=== PATIENT | male | born 2000 | race Caucasian/White ===

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

== ENCOUNTER 2022-09-14 22:31 | Observation (INO) | payer BC ==
[2022-09-14] MEDS ORDERED: SODIUM CHLORIDE 0.9% 1,000 ML IV STA (23:20)
[2022-09-14] MEDS ORDERED: ASPIRIN 81 MG PO STA (23:20)
[2022-09-14] MEDS: METOPROLOL TARTRATE 5 MG/5 ML VIAL IVP SCH ×2 (23:27→23:49)
[2022-09-14 23:30] LABS: Basophils % (A) 0 %; Eosinophils # (A) 0.2 k/uL (0-0.7); Eosinophils % (A) 3 %; HCT 45.7 % (39.0-53.0); HGB 15.7 gm/dL (13.0-17.5); Lymphocytes # (A) 3.4 k/uL (1.0-4.8); Lymphocytes % (A) 39 %; MCH 29.6 pg (25.0-35.0); MCHC 34.3 g/dL (31.0-37.0); MCV 86.2 fL (80.0-100.0); Mean Platelet Volume 7.9; Monocytes # (A) 0.5 k/uL (0-1.0); Monocytes % (A) 6 %; Neutrophils # (A) 4.5 k/uL (1.3-7.7); Neutrophils % (A) 51 %; Platelet Count 284 k/uL (150-450); RBC 5.31 m/uL (4.30-5.90); RDW 13.4 % (11.5-15.5); WBC 8.9 k/uL (3.8-10.6)
[2022-09-14 23:40] LABS: ALT 28 U/L (4-49); AST 26 U/L (17-59); African American GFR (CKD) >90 (>60 ml/min/1.73 sqM); Alkaline Phosphatase 97 U/L (38-126); Anion Gap 14 mmol/L; Blood Urea Nitrogen 17 mg/dL (9-20); Calcium 9.4 mg/dL (8.4-10.2); Carbon Dioxide 23 mmol/L (22-30); Chloride 103 mmol/L (98-107); Glucose 118 mg/dL (74-99); Magnesium 2.1 mg/dL (1.6-2.3); Non-African American GFR(CKD) >90 (>60 ml/min/1.73 sqM); Sodium 140 mmol/L (137-145); Total Bilirubin 0.3 mg/dL (0.2-1.3); Total Protein 7.5 g/dL (6.3-8.2)
--- NOTE | 2022-09-14 23:41 | XR ---
EXAMINATION TYPE: XR chest 2V DATE OF EXAM: 09/14/2022 11:36 PM COMPARISON: None TECHNIQUE: XR chest 2V Frontal and lateral views of the chest. CLINICAL INDICATION:Male, 22 years old with history of Chest Pain; FINDINGS: Lungs/Pleura: There is no evidence of pleural effusion, focal consolidation, or pneumothorax. Pulmonary vascularity: Unremarkable. Heart/mediastinum: Cardiomediastinal silhouette is unremarkable. Musculoskeletal: No acute osseous pathology. IMPRESSION: No acute cardiopulmonary disease/process.
[2022-09-14 23:50] LABS: INR 1.1 (<1.2); Partial Thromboplastin Time 27.4 sec (22.0-30.0); Prothrombin Time 11.6 sec (9.0-12.0)
[2022-09-15] MEDS ORDERED: HEPARIN SODIUM 1,000 UN/ML (10ML VL) IV ONE
[2022-09-15] MEDS ORDERED: HEPARIN SODIUM 1,000 UN/ML (10ML VL) IV PRN
[2022-09-15] MEDS: METOPROLOL TARTRATE 5 MG/5 ML VIAL IVP SCH ×4 (00:05→01:12)
[2022-09-15] MEDS ORDERED: METOPROLOL TARTRATE 50 MG TAB PO STA (00:51)
[2022-09-15] MEDS: HEPARIN SOD,PORK IN 0.45% NACL 25,000 UNIT in 0.45% NACL 1 250ML.BAG IV SCH (01:09)
[2022-09-15] MEDS ORDERED: DILTIAZEM 5 MG/ML 5 ML VIAL IVP STA (01:33)
[2022-09-15] MEDS ORDERED: DILTIAZEM 125 MG in SODIUM CHLORIDE 0.9% 100 ML IV SCH (01:45)
[2022-09-15] MEDS ORDERED: NALOXONE 0.4 MG/ML 1 ML VIAL IV PRN ×2 (01:47→01:48)
[2022-09-15] MEDS ORDERED: ONDANSETRON 4 MG/2 ML VIAL IVP PRN (01:48)
--- NOTE | 2022-09-15 03:34 | ED ---
General Adult HPI - General Chief complaint: Arrhythmia/Palpitations Stated complaint: Rapid Heart Rate, Chest Tightness, Heart History Time Seen by Provider: 09/14/22 23:20 Source: patient, RN notes reviewed, old records reviewed Mode of arrival: ambulatory Limitations: no limitations - History of Present Illness Initial comments: Patient is a 22-year-old male who presents emergency Department complaining of heart palpitations, lightheadedness, as well as some chest tightness. Patient has a history of A. fib. States this usually happens when he has A. fib. Seems to be somewhat noncompliant with metoprolol. States he has been out of his normal prescription for metoprolol. Also has not been on any blood thinners and is uncertain why. Seems like he may have poor follow-up. Is overall a poor historian. States he began experiencing symptoms earlier today. Denies any shortness of breath. Denies any abdominal pain, nausea, vomiting. States the chest tightness is mostly over the left side with no radiation. No other acute complaints at this time. Presents for further evaluation at this time. - Related Data Previous Rx's Medication Instructions Recorded Apixaban [Eliquis] 5 mg PO BID #60 tab 01/10/20 Metoprolol Tartrate [Lopressor] 50 mg PO BID #60 tab 01/10/20 Allergies Allergy/AdvReac Type Severity Reaction Status Date / Time No Known Allergies Allergy Verified 09/14/22 22:39 Review of Systems ROS Statement: Those systems with pertinent positive or pertinent negative responses have been documented in the HPI. Review of Systems: CONST: Denies fever EYES: Denies blurry vision ENT: Denies nasal congestion C/V: Endorses heart palpitations RESP: Denies shortness of breath GI: Denies abdominal pain : Denies dysuria SKIN: Denies rash. MSK: Denies joint pain. NEURO: Denies headache ROS Other: All systems not noted in ROS Statement are negative. Past Medical History Past Medical History: Chest Pain / Angina Additional Past Medical History / Comment(s): Pt reports seeing finish specialist in the past for a sinus arrhythmia History of Any Multi-Drug Resistant Organisms: None Reported Past Surgical History: No Surgical Hx Reported Past Anesthesia/Blood Transfusion Reactions: No Reported Reaction Past Psychological History: Depression Smoking Status: Former smoker Past Alcohol Use History: Rare Past Drug Use History: None Reported - Past Family History Mother Family Medical History: No Reported History Father Family Medical History: No Reported History General Exam - General Exam Comments Initial Comments: General: Appears in no acute distress. HEAD: Normal with no signs of head trauma. EYES: PERRLA, EOMI, conjunctiva normal, no discharge. ENT: Hearing grossly intact, normal oropharynx. RESPIRATORY: Clear breath sounds bilaterally. No wheezes, rales, or rhonchi. C/V: Irregular rate and rhythm. S1 and S2 auscultated. No peripheral edema. Peripheral pulses 2+ and intact throughout. ABD: Abd is soft, nontender, nondistended EXT: Normal range of motion, no obvious deformity SKIN: No rashes or lesions observed on exposed skin. NEURO: Alert and oriented 4. Limitations: no limitations Course Vital Signs 09/14/22 09/14/22 09/15/22 22:36 23:30 00:00 Temperature 97.8 F Pulse Rate 157 H 165 H 158 H Respiratory 18 16 18 Rate Blood Pressure 129/84 109/73 115/90 O2 Sat by Pulse 98 99 98 Oximetry 09/15/22 09/15/22 01:30 02:30 Temperature Pulse Rate 126 H 114 H Respiratory 15 16 Rate Blood Pressure 109/61 110/94 O2 Sat by Pulse 98 97 Oximetry Medical Decision Making - Medical Decision Making Was pt. sent in by a medical professional or institution (HAILEY Lopez, UNIVERSITY RELATIONS DIRECTOR, urgent care, hospital, or alf...) When possible be specific @ -No Did you speak to anyone other than the patient for history (EMS, parent, family, police, friend...)? What history was obtained from this source @ -No Did you review nursing and triage notes (agree or disagree)? Why? @ -I reviewed and agree with nursing and triage notes Were old charts reviewed (outside hosp., previous admission, EMS record, old EKG, old radiological studies, urgent care reports/EKG's, alf records)? Report findings @ -No old charts were reviewed Differential Diagnosis (chest pain, altered mental status, abdominal pain women, abdominal pain men, vaginal bleeding, weakness, fever, dyspnea, syncope, headache, dizziness, GI bleed, back pain, seizure, CVA, palpatations, mental health, musculoskeletal)? @ -Differential Chest Pain: Stable Angina, Unstable Angina, STEMI, NSTEMI Aortic Dissection, Pneumothorax, Musculoskeletal, Esophageal Spasm GERD, Cholecystitis, Pancreatitis, Zoster, this is not meant to be an all-inclusive list. EKG interpreted by me (3pts min.). @ -As above X-rays interpreted by me (1pt min.). @ -Chest x-ray reveals no obvious acute cardio pulmonary process. CT interpreted by me (1pt min.). @ -None done U/S interpreted by me (1pt. min.). @ -None done What testing was considered but not performed or refused? (CT, X-rays, U/S, labs)? Why? @ -None What meds were considered but not given or refused? Why? @ -None Did you discuss the management of the patient with other professionals (pr ofessionals i.e. , PA, UNIVERSITY RELATIONS DIRECTOR, lab, RT, psych nurse, social research assistant, business solutions director, teacher, aeronautical engineering officer, shoe caser)? Give summary @ -I spoke with Dr. Wilson who accepted the admission. Was smoking cessation discussed for >3mins.? @ -No Was critical care preformed (if so, how long)? @ -Yes, 40 minutes. Were there social determinants of health that impacted care today? How? (Homelessness, low income, unemployed, alcoholism, drug addiction, transportation, low edu. Level, literacy, decrease access to med. care, fdc, rehab)? @ -No Was there de-escalation of care discussed even if they declined (Discuss DNR or withdrawal of care, Hospice)? DNR status @ -No What co-morbidities impacted this encounter? (DM, HTN, Smoking, COPD, CAD, Cancer, CVA, ARF, Chemo, Hep., AIDS, mental health diagnosis, sleep apnea, mor bid obesity)? @ -Atrial fibrillation Was patient admitted / discharged? Hospital course, mention meds given and route, prescriptions, significant lab abnormalities, going to OR and other pertinent info. @ -Based on the patient's presentation and physical exam, is a 22-year-old male with history of A. fib currently experiencing what seems to be atrial fibrillation. Patient does have A. fib on EKG. He seems somewhat Medications. Is normal and metoprolol. I did discuss with him and he will be started on a heparin drip and we will attempt to obtain rate control with IV metoprolol pushes as well as an oral loading dose. He was in agreement with this plan. We will obtain cardio pulmonary labs. EKG showed atrial fibrillation with RVR with a ventricular rate of 157. Chest x-ray shows no obvious acute cardio, process. Laboratory studies are remarkable for an indeterminate troponin. Remainder labs are within acceptable limits. Patient did initially respond well to IV metoprolol pushes. Received a total of 2.5 mg IV metoprolol 4 times and was loaded with 50 mg of oral metoprolol. Patient's heart rate was improved down to 120 at that time. However shortly after I was notified that it did increase back up to 160 and was persistent. Therefore the decision was made to start the patient on a Cardizem drip. He was in agreement this plan. Patient did respond well to Cardizem. Heart rate did improve to 114. He remained in A. fib. Patient will be admitted to the hospital. He was in agreement this plan. I spoke with the admitting physician, Dr. Wilson who accepted the patient. Cardiology is consulted. Undiagnosed new problem with uncertain prognosis? @ -No Drug Therapy requiring intensive monitoring for toxicity (Heparin, Nitro, Insulin, Cardizem)? @ -heparin, cardizem Were any procedures done? @ -No Diagnosis/symptom? @ -A. fib with RVR Acute, or Chronic, or Acute on Chronic? @ -Acute on chronic Uncomplicated (without systemic symptoms) or Complicated (systemic symptoms)? @ -Complicated Side effects of treatment? @ -No Exacerbation, Progression, or Severe Exacerbation? @ -Exacerbation Poses a threat to life or bodily function? How? (Chest pain, USA, SD, pneumonia, PE, COPD, DKA, ARF, appy, cholecystitis, CVA, Diverticulitis, Homicidal, Suicidal, threat to staff... and all critical care pts) @ -Yes - Lab Data Result diagrams: 09/14/22 23:16 09/14/22 23:16 Lab Results 09/14/22 09/14/22 09/14/22 Range/Units 23:16 23:16 23:16 WBC 8.9 (3.8-10.6) k/uL RBC 5.31 (4.30-5.90) m/uL Hgb 15.7 (13.0-17.5) gm/dL Hct 45.7 (39.0-53.0) % MCV 86.2 (80.0-100.0) fL MCH 29.6 (25.0-35.0) pg MCHC 34.3 (31.0-37.0) g/dL RDW 13.4 (11.5-15.5) % Plt Count 284 (150-450) k/uL MPV 7.9 Neutrophils % 51 % Lymphocytes % 39 % Monocytes % 6 % Eosinophils % 3 % Basophils % 0 % Neutrophils # 4.5 (1.3-7.7) k/uL Lymphocytes # 3.4 (1.0-4.8) k/uL Monocytes # 0.5 (0-1.0) k/uL Eosinophils # 0.2 (0-0.7) k/uL Basophils # 0.0 (0-0.2) k/uL PT 11.6 (9.0-12.0) sec INR 1.1 (<1.2) APTT 27.4 (22.0-30.0) sec Sodium 140 (137-145) mmol/L Potassium 4.0 (3.5-5.1) mmol/L Chloride 103 (98-107) mmol/L Carbon Dioxide 23 (22-30) mmol/L Anion Gap 14 mmol/L BUN 17 (9-20) mg/dL Creatinine 0.78 (0.66-1.25) mg/dL Est GFR (CKD-EPI)AfAm >90 (>60 ml/min/1.73 sqM) Est GFR (CKD-EPI)NonAf >90 (>60 ml/min/1.73 sqM) Glucose 118 H (74-99) mg/dL Calcium 9.4 (8.4-10.2) mg/dL Magnesium 2.1 (1.6-2.3) mg/dL Total Bilirubin 0.3 (0.2-1.3) mg/dL AST 26 (17-59) U/L ALT 28 (4-49) U/L Alkaline Phosphatase 97 (38-126) U/L Troponin I (0.000-0.034) ng/mL Total Protein 7.5 (6.3-8.2) g/dL Albumin 5.0 (3.5-5.0) g/dL 09/14/22 Range/Units 23:16 WBC (3.8-10.6) k/uL RBC (4.30-5.90) m/uL Hgb (13.0-17.5) gm/dL Hct (39.0-53.0) % MCV (80.0-100.0) fL MCH (25.0-35.0) pg MCHC (31.0-37.0) g/dL RDW (11.5-15.5) % Plt Count (150-450) k/uL MPV Neutrophils % % Lymphocytes % % Monocytes % % Eosinophils % % Basophils % % Neutrophils # (1.3-7.7) k/uL Lymphocytes # (1.0-4.8) k/uL Monocytes # (0-1.0) k/uL Eosinophils # (0-0.7) k/uL Basophils # (0-0.2) k/uL PT (9.0-12.0) sec INR (<1.2) APTT (22.0-30.0) sec Sodium (137-145) mmol/L Potassium (3.5-5.1) mmol/L Chloride (98-107) mmol/L Carbon Dioxide (22-30) mmol/L Anion Gap mmol/L BUN (9-20) mg/dL Creatinine (0.66-1.25) mg/dL Est GFR (CKD-EPI)AfAm (>60 ml/min/1.73 sqM) Est GFR (CKD-EPI)NonAf (>60 ml/min/1.73 sqM) Glucose (74-99) mg/dL Calcium (8.4-10.2) mg/dL Magnesium (1.6-2.3) mg/dL Total Bilirubin (0.2-1.3) mg/dL AST (17-59) U/L ALT (4-49) U/L Alkaline Phosphatase (38-126) U/L Troponin I 0.014 (0.000-0.034) ng/mL Total Protein (6.3-8.2) g/dL Albumin (3.5-5.0) g/dL - EKG Data -: EKG Interpreted by Me EKG Comments: 12-lead Electrocardiogram Interpretation Note EKG was reviewed and interpreted by myself. 12-lead ECG performed at 2242 is interpreted by me as revealing atrial fibrillation with RVR at a rate of 157 beats per minute. [place] is normal. QRS duration is 85 ms, QTc is 355 ms.. There were no ST or T wave abnormalities to suggest myocardial ischemia or injury. R wave progression across the precordium was satisfactory. By my interpretation this EKG is non-diagnostic for acute ischemia. 12-lead Electrocardiogram Interpretation Note EKG was reviewed and interpreted by myself. 12-lead ECG performed at 0305 is interpreted by me as revealing A. fib with RVR at a rate of 106 beats per m inute. [place] is normal. QRS duration is 92 ms, QTc is 338 ms.. There were no ST or T wave abnormalities to suggest myocardial ischemia or injury. R wave progression across the precordium was satisfactory. By my interpretation this EKG is non-diagnostic for acute ischemia. Critical Care Time Critical Care Time: Yes Total Critical Care Time: 40 Disposition Clinical Impression: Atrial fibrillation with RVR Disposition: ADMITTED IP TO THIS HOSP Condition: Serious Time of Disposition: 01:37
--- NOTE | 2022-09-15 04:05 | P.HPIM ---
History of Present Illness H&P Date: 09/15/22 The patient is a 22-year-old male with a PMH of A. fib (diagnosed 3 years ago) on Eliquis who presents to the emergency room with complaints of palpitations and chest tightness. The patient reports that his symptoms started suddenly this evening at around 9 PM. Immediately became alarmed and drove himself to the hospital. In the emergency room, EKG revealed A. fib with RVR at 157 bpm with PVCs. The patient reports being noncompliant with his medications at home. The patient was started on Cardizem and heparin infusions. He reports at time of interview that his symptoms have improved significantly. He denied experiencing fever, chills, cough, nausea, vomiting. Chest x-ray in the emergency room was unremarkable. Subsequent EKG revealed A. fib with RVR at 106 bpm. Laboratory evaluation was reviewed and was remarkable for troponin 0.014, WBC 8.9, hemoglobin 15.7, platelets 284, sodium 140, potassium 4.0. ED documentation reviewed and case discussed with ED provider. Review of systems: Pertinent positives and negatives as discussed in HPI, a complete review of systems was performed and all other systems are negative. Physical examination: Vital signs reviewed General: non toxic, no distress, appears at stated age, normal weight Derm: no unusual rashes/lesions, warm Head: atraumatic, normocephalic, symmetric Eyes: EOMI, no lid lag, anicteric sclera, pupils equal round reactive to light ENT: Nose and ears atraumatic Neck: No cervical lymphadenopathy, trachea midline, supple Mouth: no lip lesion, mucus membranes moist Cardiovascular: Irregularly irregular, no murmur, positive dorsalis pedis pulse bilateral, no edema Lungs: CTA bilateral, no rhonchi, no rales, no accessory muscle use Abdominal: soft, nontender to palpation, no guarding Ext: muscle strength 5 out of 5 in all 4 extremities grossly, no gross muscle atrophy, no contractures, Neuro: CN II-XI grossly intact, no gross focal neuro deficits Psych: Alert, oriented, appropriate affect Assessment: A. fib with RVR, noncompliance with medications at home Imaging: Chest x-ray in the emergency room was unremarkable. Initial EKG revealed A. fib with RVR at 157 bpm with PVCs. Subsequent EKG revealed A. fib with RVR at 106 bpm. Data Review: Laboratory evaluation was reviewed and was remarkable for troponin 0.014, WBC 8.9, hemoglobin 15.7, platelets 284, sodium 140, potassium 4.0. 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 for a sinus arrhythmia History of Any Multi-Drug Resistant Organisms: None Reported Past Surgical History: No Surgical Hx Reported Past Anesthesia/Blood Transfusion Reactions: No Reported Reaction Past Psychological History: Depression Smoking Status: Former smoker Past Alcohol Use History: Rare Past Drug Use History: None Reported - Past Family History Mother Family Medical History: No Reported History Father Family Medical History: Hypertension Medications and Allergies Home Medications Medication Instructions Recorded Confirmed Type Apixaban [Eliquis] 5 mg PO BID #60 tab 01/10/20 Rx Metoprolol Tartrate [Lopressor] 50 mg PO BID #60 tab 01/10/20 Rx Allergies Allergy/AdvReac Type Severity Reaction Status Date / Time No Known Allergies Allergy Verified 09/14/22 22:39 Physical Exam Vitals: Vital Signs Temp Pulse Resp BP Pulse Ox 09/15/22 03:58 108 H 16 116/80 97 09/15/22 02:30 114 H 16 110/94 97 09/15/22 01:30 126 H 15 109/61 98 09/15/22 00:00 158 H 18 115/90 98 09/14/22 23:30 165 H 16 109/73 99 09/14/22 22:36 97.8 F 157 H 18 129/84 98 Intake and Output 09/14/22 09/14/22 09/15/22 14:59 22:59 06:59 Other: Weight 86.183 kg Results CBC & Chem 7: 09/14/22 23:16 09/14/22 23:16 Labs: Abnormal Lab Results - Last 24 Hours (Table) 09/14/22 Range/Units 23:16 Glucose 118 H (74-99) mg/dL
--- NOTE | 2022-09-15 11:47 | P.PN ---
Progress Note - Text Progress Note Date: 09/15/22 I saw and evaluated patient independently today, and I agree with the documented assessment and plan by my colleague earlier this morning. Patient is maxed out on Cardizem drip and still has rate control issues with heart rate spiking to the 160s to 180s. During my evaluation, I briefly tried carotid massage which improved his heart rates to under 100, but then promptly return to 130s. I added metoprolol 50 mg twice a day. Pending cardiology consultation.
[2022-09-15] MEDS: METOPROLOL TARTRATE 50 MG TAB PO SCH ×2 (11:48→20:02)
[2022-09-15] MEDS ORDERED: AMIODARONE 360 MG in DEXTROSE 5% IN WATER 200 ML IV ONE ×2 (12:52)
[2022-09-15] MEDS ORDERED: DEXTROSE 5% IN WATER 100 ML with AMIODARONE 150 MG IV ONE (12:52)
--- NOTE | 2022-09-15 16:47 | P.CRDCN ---
History of Present Illness Consult date: 09/15/22 Consult reason: atrial fibrillation Chief complaint: Palpitations History of present illness: History of present illness: Patient is a pleasant 22-year-old male with significant past medical history of atrial fibrillation first diagnosed 3 years ago and 2020 presented to the emergency department with complaints of palpitations and rapid heart rate. He follows with Dr. Alas in the office. He reports that he was drinking a frozen drink yesterday and got the brain freeze and developed palpitations. His heart was racing and he developed chest pain. EKG showed atrial fibrillation with RVR 157 bpm. Chest x-ray showed no acute findings. Troponins 0.014, 0.020, 0.050, recommend 0.78, potassium 4.0. He was started on IV Cardizem drip and was increased to the max dose and heart rates were still [id number] in the emergency department. He was therefore started on amiodarone. He had a previous echo 01/2020 that showed ejection fraction of 5560 percent. He denies smoking tobacco, only drinks occasional alcohol, he does smoke marijuana, denies any use of stimulants. He does not that he ran out of his metoprolol extended release so over the past couple days has only been taking metoprolol short acting as nee ded. He reports that he has had his atrial fibrillation triggered by brain freeze in the past as well. He is not on any anticoagulation. He currently reports feeling better and denies any chest pain or pressure. Denies any shortness of breath, dizziness, lightheadedness. REVIEW OF SYSTEMS: No fever or chills. No cough or expectoration. No diaphoresis. Patient denies headache, dizziness, blurred vision, double vision. Patient denies any stomach discomfort. No nausea, vomiting. No hematochezia. No hematemesis. Denies any black stools or blood in his stools. Denies dysuria or hematuria. No muscle weakness or numbness. No chest pain or pressure. PHYSICAL EXAMINATION: This is a 22-year-old male in no apparent distress at the time of my examination. HEENT: Head is atraumatic, normocephalic. Pupils are equal, round. Sclerae anicteric. Conjunctivae are clear. Mucous membranes of the mouth are moist. Neck is supple. There is no jugular venous distention. No carotid bruit is heard. CHEST EXAMINATION: Lungs are clear to auscultation. No chest wall tenderness is noted on palpation or with deep breathing. HEART EXAMINATION: Irregular rate and rhythm, tachycardic. S1, S2 heard. No murmurs, gallops or rub. ABDOMEN: Soft, nontender. Bowel sounds are heard. EXTREMITIES: 2+ peripheral pulses with no evidence of peripheral edema and no calf tenderness noted. NEUROLOGIC EXAMINATION: Patient is awake, alert and oriented x3. IMPRESSION AND PLAN: A. fib with RVR Chest pain Abnormal troponin, likely related to A. fib with RVR PLAN: Continue with amiodarone drip at this time. [id number] score 0, anticoagulation is not indicated. Continue with metoprolol. Check TSH. May consider ablation for longer term management of atrial fibrillation in the future. If he does convert to normal sinus rhythm okay to discharge home on home medications and follow up with Dr. Alas in office in 1 week. Otherwise, will follow up tomorrow. I am dictating on behalf of Dr. Tarun Saucedo's history/physical and assessment/plan. 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 sinus arrhythmia History of Any Multi-Drug Resistant Organisms: None Reported Past Surgical History: No Surgical Hx Reported Past Anesthesia/Blood Transfusion Reactions: No Reported Reaction Past Psychological History: Depression Smoking Status: Former smoker Past Alcohol Use History: Rare Past Drug Use History: None Reported - Past Family History Mother Family Medical History: No Reported History Father Family Medical History: Hypertension Medications and Allergies Home Medications Medication Instructions Recorded Confirmed Type Metoprolol Succinate (ER) [Toprol 25 mg PO DAILY 09/15/22 09/15/22 History Xl] Allergies Allergy/AdvReac Type Severity Reaction Status Date / Time No Known Allergies Allergy Verified 09/15/22 11:13 Physical Exam Vitals: Vital Signs Temp Pulse Resp BP Pulse Ox 09/15/22 12:00 97.5 F L 131 H 16 123/94 99 09/15/22 10:00 176 H 09/15/22 08:00 97.4 F L 116 H 16 124/83 99 09/15/22 06:39 98.7 F 107 H 18 126/87 99 09/15/22 03:58 108 H 16 116/80 97 09/15/22 02:30 114 H 16 110/94 97 09/15/22 01:30 126 H 15 109/61 98 09/15/22 00:00 158 H 18 115/90 98 09/14/22 23:30 165 H 16 109/73 99 09/14/22 22:36 97.8 F 157 H 18 129/84 98 Intake and Output 09/15/22 09/15/22 09/15/22 06:59 14:59 22:59 Intake Total 71 Balance 71 Intake: Intake, IV Titration 71 Amount Heparin Sod,Pork in 0.45% 71 NaCl 25,000 unit In 0.45 % NaCl 1 250ml.bag @ 11. 603 UNITS/KG/HR 10 mls/hr IV .Q24H [facility] Rx#: [id number] Results 09/14/22 23:16 09/14/22 23:16 Cardiac Enzymes 09/14/22 09/14/22 09/15/22 Range/Units 23:16 23:16 03:36 AST 26 (17-59) U/L Troponin I 0.014 0.020 (0.000-0.034) ng/mL 09/15/22 Range/Units 06:07 AST (17-59) U/L Troponin I 0.050 H* (0.000-0.034) ng/mL Coagulation 09/14/22 09/15/22 Range/Units 23:16 06:07 PT 11.6 (9.0-12.0) sec APTT 27.4 55.2 H (22.0-30.0) sec CBC 09/14/22 Range/Units 23:16 WBC 8.9 (3.8-10.6) k/uL RBC 5.31 (4.30-5.90) m/uL Hgb 15.7 (13.0-17.5) gm/dL Hct 45.7 (39.0-53.0) % Plt Count 284 (150-450) k/uL Comprehensive Metabolic Panel 09/14/22 Range/Units 23:16 Sodium 140 (137-145) mmol/L Potassium 4.0 (3.5-5.1) mmol/L Chloride 103 (98-107) mmol/L Carbon Dioxide 23 (22-30) mmol/L BUN 17 (9-20) mg/dL Creatinine 0.78 (0.66-1.25) mg/dL Glucose 118 H (74-99) mg/dL Calcium 9.4 (8.4-10.2) mg/dL AST 26 (17-59) U/L ALT 28 (4-49) U/L Alkaline Phosphatase 97 (38-126) U/L Total Protein 7.5 (6.3-8.2) g/dL Albumin 5.0 (3.5-5.0) g/dL Current Medications Generic Name Dose Route Start Last Admin Trade Name Freq PRN Reason Stop Dose Admin Heparin Sodium (Porcine) 0 unit 09/15/22 00:00 Heparin Sodium 1,000 Un/Ml (10ml Vl) IV PER PROTOCOL PRN Low PTT Protocol Heparin Sodium/Sodium Chloride 250 mls @ 10 mls/hr 09/15/22 00:00 09/15/22 08:15 25,000 unit/ Sodium Chloride IV 11.6 units/kg/hr .Q24H [facility] 10 mls/hr Titration Protocol 11.603 UNITS/KG/HR Diltiazem HCl 125 mg/ Sodium 125 mls @ 0 mls/hr 09/15/22 01:45 Chloride IV .Q0M [facility] Protocol Per Protocol Amiodarone HCl 360 mg/ 200 mls @ 33.333 mls/hr 09/15/22 12:52 09/15/22 13:49 Dextrose/Water IV 09/15/22 18:51 1 mg/min .Q6H ONE 33.333 mls/hr Administration Protocol 1 MG/MIN Amiodarone HCl 450 mg/ 250 mls @ 16.667 mls/hr 09/15/22 19:00 Dextrose/Water IV 09/16/22 12:59 .Q15H SHENG Protocol 0.5 MG/MIN Metoprolol Tartrate 50 mg 09/15/22 11:00 09/15/22 11:48 Metoprolol Tartrate 50 Mg Tab PO 50 mg BID SHENG Administration Naloxone HCl 0.2 mg 09/15/22 01:48 Naloxone 0.4 Mg/Ml 1 Ml Vial IV Q2M PRN Opioid Reversal Ondansetron HCl 4 mg 09/15/22 01:48 Ondansetron 4 Mg/2 Ml Vial IVP Q8HR PRN Nausea And Vomiting Intake and Output 09/15/22 09/15/2223 06:59 14:59 22:59 Intake Total 71 Balance 71 Intake: Intake, IV Titration 71 Amount Heparin Sod,Pork in 0.45% 71 NaCl 25,000 unit In 0.45 % NaCl 1 250ml.bag @ 11. 603 UNITS/KG/HR 10 mls/hr IV .Q24H [facility] Rx#: [id number] 09/14/22 23:16 09/14/22 23:16
[2022-09-15] MEDS ORDERED: AMIODARONE 450 MG in DEXTROSE 5% IN WATER 250 ML IV SCH ×2 (19:00)
[2022-09-16] MEDS: HEPARIN SOD,PORK IN 0.45% NACL 25,000 UNIT in 0.45% NACL 1 250ML.BAG IV SCH (01:09)
[2022-09-16 06:28] VITALS: TEMP 97.9
[2022-09-16] MEDS: METOPROLOL TARTRATE 50 MG TAB PO SCH (08:24)
[2022-09-16 08:26] VITALS: BP 118/89; PULSE 60; RESP 16
--- NOTE | 2022-09-16 10:16 | P.DS ---
Providers Date of admission: 09/15/22 01:47 Expected date of discharge: 09/16/22 Attending physician: Coni Wilson MD Consults: 09/15/22 01:47 Consult Physician Routine Consulting Provider: [facility] Consult Reason/Comments: afib with rvr Do you want consulting provider notified?: Yes Primary care physician: Physician Nonstaff Hospital Course: Assessment: A. fib with RVR, noncompliance with medications at home The patient is a 22-year-old male with a PMH of A. fib (diagnosed 3 years ago) on Eliquis who presented to the emergency room with complaints of palpitations and chest tightness. Chest x-ray in the emergency room was unremarkable. Subsequent EKG revealed A. fib with RVR at 106 bpm. Laboratory evaluation was reviewed and was remarkable for troponin 0.014, WBC 8.9, hemoglobin 15.7, platelets 284, sodium 140, potassium 4.0. Patient was admitted for atrial fibrillation with RVR. Patient was seen by cardiology. Patient was started on amiodarone and had metoprolol increased. Patient converted overnight to normal sinus rhythm, was subsequently sent home with cardiology follow-up in one week. His home metoprolol XL was increased from 25 mg to 50 mg daily. Gen: awake, alert HEENT: normocephalic, atraumatic, good hearing acuity, moist mucous membranes Resp: good air exchange, breathing comfortably with no accessory muscle use CVS: good distal perfusion x 4, GI: soft, NTTP, ND : no SPT, no CVAT, fenton catheter not present MSK: no pitting edema, no clubbing Neuro: non-focal, moving all extremities Psych: cooperative, euthymic mood Patient Condition at Discharge: Good Plan - Discharge Summary Discharge Rx Participant: No New Discharge Prescriptions: Changed Metoprolol Succinate (ER) [Toprol XL] 50 mg PO DAILY #60 tab Discharge Medication List Metoprolol Succinate (ER) [Toprol XL] 50 mg PO DAILY #60 tab 09/16/22 [Rx] Follow up Appointment(s)/Referral(s): Nonstaff,Physician [Primary Care Provider] - 1 Week Discharge Disposition: HOME SELF-CARE
== END 2022-09-16 10:57 | disposition home or self-care (01) ==
LOC: EC 22:31 → 3SCARD 09-15 01:47 → INTOOBSV 09-15 01:47 → 3SCARD 09-15 13:53 → UNDODISIN 09-16 10:57
PROVIDERS: ADMIT Internal Medicine; ATTEND Internal Medicine
DX: I48.91 Unspecified atrial fibrillation (principal); F32.A Depression, unspecified; F12.90 Cannabis use, unspecified, uncomplicated; Z79.01 Long term (current) use of anticoagulants; Z79.899 Other long term (current) drug therapy; Z87.891 Personal history of nicotine dependence; Z91.148 Patient's other noncompliance with medication regimen for other reason; Z82.49 Family history of ischemic heart disease and other diseases of the circulatory system
CPT/HCPCS: 96366 ×4; 96376 ×2; 96361 ×2; 96365 ×2; 96375 ×2; 99291; 36415; 93005 ×2; 80053; 84443; 83735; 84484 ×2; 85025; 85610; 85730 ×2; 71046; G0378 ×2; J0282 ×2; J1644 ×3; 96368

== ENCOUNTER → 2023-05-13 | Day surgery (SDC) | payer BC ==
[~2023-05-13] MED LIST: APIXABAN 5 MG TAB PO SCH; SODIUM CHLORIDE 0.9% 1,000 ML IV SCH
[2023-05-13] MEDS: SODIUM CHLORIDE 0.9% 1,000 ML IV ONE (09:34)
[2023-05-13 10:06] LABS: Basophils # (A) 0.1 k/uL (0-0.2); Basophils % (A) 1 %; Eosinophils # (A) 0.2 k/uL (0-0.7); Eosinophils % (A) 2 %; HCT 45.6 % (39.0-53.0); HGB 15.3 gm/dL (13.0-17.5); Lymphocytes # (A) 2.8 k/uL (1.0-4.8); Lymphocytes % (A) 33 %; MCH 28.9 pg (25.0-35.0); MCHC 33.6 g/dL (31.0-37.0); MCV 86.1 fL (80.0-100.0); Mean Platelet Volume 7.8; Monocytes # (A) 0.5 k/uL (0-1.0); Monocytes % (A) 6 %; Neutrophils # (A) 4.6 k/uL (1.3-7.7); Neutrophils % (A) 55 %; Platelet Count 258 k/uL (150-450); WBC 8.4 k/uL (3.8-10.6)
[2023-05-13 10:16] VITALS: BP 135/68; PULSE 84; RESP 16; TEMP 98.6
[2023-05-13 10:55] LABS: African American GFR (CKD) >90 (>60 ml/min/1.73 sqM); Anion Gap 6 mmol/L; Blood Urea Nitrogen 11 mg/dL (9-20); Calcium 9.7 mg/dL (8.4-10.2); Carbon Dioxide 28 mmol/L (22-30); Chloride 105 mmol/L (98-107); Glucose 114 mg/dL (74-99); Non-African American GFR(CKD) >90 (>60 ml/min/1.73 sqM); Potassium 4.2 mmol/L (3.5-5.1); Sodium 139 mmol/L (137-145)
--- NOTE | 2023-05-20 18:44 | P.EPPROC ---
- EP Procedure Note Electrophysiology Procedure Note: Patient was rescheduled for his A-fib ablation today The storage garage manager in the [employer] reconfirmed that he had been n.p.o. However when the WALLCOVERING HANGER asked him if he was n.p.o. he stated he had eaten at 630am Case canceled
== END ==
LOC: CATHEP 09:30
PROVIDERS: ATTEND Internal Medicine Clinical Cardiac Electrophysiology
DX: Z53.8 Procedure and treatment not carried out for other reasons (principal); I48.0 Paroxysmal atrial fibrillation; F17.210 Nicotine dependence, cigarettes, uncomplicated; Z79.01 Long term (current) use of anticoagulants; Z79.899 Other long term (current) drug therapy
CPT/HCPCS: 80048; 85025; 86850; 86900; 86901